=== PATIENT | male | born 1945 | race Caucasian/White ===

== ENCOUNTER → 2017-06-30 11:15 | Outpatient (CLI) | payer MEDICARE, OTHER, SELFPAY | PROVIDERS: Family Provider Family Medicine; PCP Family Medicine; Visit Provider Family Medicine | DX: N39.0 Urinary tract infection, site not specified (principal) | CPT/HCPCS: 87077; 87086; 87088; 87186 ==

== ENCOUNTER 2017-09-04 11:00 | Outpatient (RCR) | payer MEDICARE, OTHER, SELFPAY ==
--- NOTE | 2017-05-02 20:12 | HP.PTEVAL_ITS ---
Patient's Visit Information DIANNE HERNANDEZ is a 71 year old M referred to Physical Therapy by Adair RUBY with a diagnosis of R TKA. Date of Evaluation: 05/02/17 Physical Therapist: Claudio Beck - Visit Plan Frequency: 2-3x /Week Duration: 4-6 Weeks Plan: Start with ROM, quad/glute med activation; progress to functional strengthening as tolerated. Use of ice and vaso for edema as needed. Progress HEP as able. - Subjective Subjective: Pt. is here today for his initial evaluation with diagnosis fo Right TKA. DOS 04/16/17. He is a plesant 71 y.o. male who reports having good response from surgery. He did home health for ~10 days but only had and eval and 1 treatment. He ws given exercises in hospital which he reports completing frequently. He arrives today without AD and reports no pain. He does have mild medial joint pain with end ranges of motions and with stairs. He denies N/T and no falls sice surgery. He was previously very active and did a lot of strength training prior to surgery. Pt. denies fever or chills. No draining from incision and no calf pain. He is hopeful to get back to all recreational activities most notably tennis without limitations. - Pain R knee Pain Intensity (Out of 10): 1 Pain Intensity Range: 0, 4 - Objective POSTURE: Pt. stands without AD. He lacks terminal knee extension on R side, increased L ne varus positioning noted. Pt. has equal illiac crest heights. PALPATION: Pt. has healing incision, no seeping or draining. Pt. has slight edema, non pitting. Pt. has minimal redness and minimal heat. Pt. has negative homans sign. NEUROLOGICAL: Pt. has normal senstation to light and sharp touch throughout bilateral LEs. Pt. has 2+ achilles DTR bilaterally. Pt. is able to rise on heels and toes without issues of LOB or weakness. ROM: L knee 0-0- 136deg. R knee 0-8-112deg. Pt. has normal hip ROM, but does have a replaced L hip as well. Pt. has tight HS bilaterally. MMT: LLE- ankle 5/5 throughout; knee - ext 5/5, flexion 5/5; hip- flexion 5/5, abd 5-/5, ext 5-/5. RLE- ankle 5/5 throughout; knee- ext 4/5, flexion 4-/5; hip- flexion 4+/5 (slight quad lag with SLR), abd 4/5, ext 4/5. Core strength- fair-. GAIT: Pt. ambulates without AD. Pt. has reduced heel strike with initial contact on RLE, decreased TKE during stance phase on LLE, decreased knee flexion during swing phase. He has increased R lateral lean during R stance phase as well. STAIRS: Pt. able to complete with reciprocal pattern with 2 HR, mild increase NW with ascending compared to descending. - Goals Goal 1:: Pt. to be I with HEP. Goal Time Frame: 4-6 Weeks Goal 2:: Pt. to have increased ROM of R knee to 0-0-125 deg allowing for increased tolerance to all functional mobility. Goal Time Frame: 4-6 Weeks Goal 3:: Pt. to have increased RLE strength by 1/2 grade of all effected musculature allowing increased stability of R knee with all functional mobility. Goal Time Frame: 4-6 Weeks Goal 4:: Pt. to negotiate steps with reciprocal pattern with 1 HR without signs of functional weakness. Goal Time Frame: 4-6 Weeks Goal 5:: Pt. to have normal gait pattern for unlimited distances without AD without increase in symptoms. Goal Time Frame: 4-6 Weeks - Rehabilitation Potential Physical Therapy Diagnosis: Pt. has increased hypomobility, weakness, pain and gait difficulty S/P R TKA. Pt. would benefit from PT to increase ROM, increased RLE strength, decreased edema and improve stability with gait. Rehabilitation Potential: Excellent - Anticipated Interventions Patient/Client Instruction: Educate patient on: Condition, Plan of Care, Risk Factors, Benefits of Fitness Program For the Purpose of:: To reduce risk of recurrence, To improve safety, To improve health and function, To foster healthy habits, To improve decision making, To improve self management, To prevent re-injury, To improve ability to perform tasks related to life management, To improve tolerance to ADL's Therapeutic Exercise to Include: Strength training, Power training, Endurance training, Balance training, Body mechanics, Postural training, Flexibilty training, Gait and locomotor training, Passive ROM, Active ROM, Dynamic Lumbar Stabilization For the Purpose of:: To decrease pain, To increase ROM, To improve nutrient delivery to tissue, To increase oxygenation perfusion, To improve muscle performance and motor function, To improve ability to perform ADL's, To increase tolerance to activity/condition/position, To decrease level of supervision to perform tasks, To improve ability of physical actions for home/ community/work/leisure, To improve gait and locomotor functions, To improve health of tissue, To decrease soft tissue restriction, To increase flexibility/ ROM, To improve endurance, To improve balance Manual Therapy Techniques to Include: Massage, Mobilization, Passive ROM For the Purpose of:: To decrease pain, To decrease swelling/inflammation, To increase ROM, To improve nutrient delivery to tissue Cryotherapy (ice pack, ice massage): Yes Vasopneumatic device: Yes For the Purpose of:: To decrease pain, To decrease swelling/inflammation, To increase ROM Thank you for the opportunity to evaluate your patient. For Medicare and Medicare HMO plans, please review the plan of care and approve it. It will need to be FAXED BACK to us at [phone] for Medicare purposes. Please let me know if there are questions or concerns regarding this plan of care. Physician Signature: Date:
--- NOTE | 2017-05-28 08:38 | HP.PTREVAL_ITS ---
Adair Veliz, It has been my pleasure to treat DIANNE HERNANDEZ over the last 10 visits for R TKA. Please see the progress note below for an update on the physical therapy plan of care! Subjective: Pt. reports increased medial joint line soreness since last visit. Pt. reports coming into gym and trying some exercises yesterday. Pt. does not go back to phsician for another few weeks. Objective/Function: ROM 0-0-128deg active. MMT- ankle 5/5; knee- ext 5-5/, flexon 5-/5; hip- flexion 4+/5, abd 4+/5, ext 4+/5. Core fair+. Gait- patient ambulates well without AD, he has TKE during stance, but does have slight drop off (lateral lean) to R side during R stance phase. STAIRS:Pt. is able to complete with reciprocal pattern, but does have difficulty with controlled eccentric lowering, improved over last few visits. Talked with patient about not over doing with exercises that will increase his R medial knee pain. Pt. edcuated that his knee is still healing and there is a time frame that will not be shorted by increased wt. or reps. He is doing very well and he do not want to inflame his knee causing him to do less, pt. consents. Plan Plan: Cont. with current POC, pt. continues to progress as expected. Progress to gym exercises and walking program as tolerated. Goals Goal 1:: Pt. to be I with HEP. Goal Time Frame: 4-6 Weeks Goal Progress: Goal Met Goal 2:: Pt. to have increased ROM of R knee to 0-0-125 deg allowing for increased tolerance to all functional mobility. Goal Time Frame: 4-6 Weeks Goal Progress: Goal Met Goal 3:: Pt. to have increased RLE strength by 1/2 grade of all effected musculature allowing increased stability of R knee with all functional mobility. Goal Time Frame: 4-6 Weeks Goal Progress: Goal Met Goal 4:: Pt. to negotiate steps with reciprocal pattern with 1 HR without signs of functional weakness. Goal Time Frame: 4-6 Weeks Goal Progress: Progressing Goal 5:: Pt. to have normal gait pattern for unlimited distances without AD without increase in symptoms. Goal Time Frame: 4-6 Weeks Goal Progress: Progressing Anticipated Interventions Patient/Client Instruction: Educate patient on: Condition, Plan of Care, Risk Factors, Benefits of Fitness Program For the Purpose of:: To reduce risk of recurrence, To improve safety, To improve health and function, To foster healthy habits, To improve decision making, To improve self management, To prevent re-injury, To improve ability to perform tasks related to life management, To improve tolerance to ADL's Therapeutic Exercise to Include: Strength training, Power training, Endurance training, Balance training, Body mechanics, Postural training, Flexibilty training, Gait and locomotor training, Passive ROM, Active ROM, Dynamic Lumbar Stabilization For the Purpose of:: To decrease pain, To increase ROM, To improve nutrient delivery to tissue, To increase oxygenation perfusion, To improve muscle performance and motor function, To improve ability to perform ADL's, To increase tolerance to activity/condition/position, To decrease level of supervision to perform tasks, To improve ability of physical actions for home/ community/work/leisure, To improve gait and locomotor functions, To improve health of tissue, To decrease soft tissue restriction, To increase flexibility/ ROM, To improve endurance, To improve balance Manual Therapy Techniques to Include: Massage, Mobilization, Passive ROM For the Purpose of:: To decrease pain, To decrease swelling/inflammation, To increase ROM, To improve nutrient delivery to tissue Cryotherapy (ice pack, ice massage): Yes Vasopneumatic device: Yes For the Purpose of:: To decrease pain, To decrease swelling/inflammation, To increase ROM Please do not hesitate to contact me at [phone] by phone or Fax: if you have questions or concerns regarding this new plan of care! Sincerely, Claudio Beck
--- NOTE | 2017-06-03 20:20 | HP.PTREVAL_ITS ---
Adair Veliz, It has been my pleasure to treat DIANNE HERNANDEZ over the last 12 visits for R TKA. Please see the progress note below for an update on the physical therapy plan of care! Subjective: Pt. reports no issues pre treatment. Pt. completed bike and nustep prior to PT this date. Objective/Function: MMT- 5/5 throughout no issues RLE. ROM- 0-0-129deg mild increase NW with over pressures, but minimal. gait: pt. ambulates with normal pattern without issues no AD. STAIRS: no functional weakness noted, reciprocal pattern without HR., No pain. Pt. is independent with current HEP. Plan Plan: Pt. has met all goals as this point in time. Pt. to trial exercises on own and call PT if needed. I will leave case open for 2-3 weeks, DC if pt. has no concerns. Goals Goal 1:: Pt. to be I with HEP. Goal Time Frame: 4-6 Weeks Goal Progress: Goal Met Goal 2:: Pt. to have increased ROM of R knee to 0-0-125 deg allowing for increased tolerance to all functional mobility. Goal Time Frame: 4-6 Weeks Goal Progress: Goal Met Goal 3:: Pt. to have increased RLE strength by 1/2 grade of all effected musculature allowing increased stability of R knee with all functional mobility. Goal Time Frame: 4-6 Weeks Goal Progress: Goal Met Goal 4:: Pt. to negotiate steps with reciprocal pattern with 1 HR without signs of functional weakness. Goal Time Frame: 4-6 Weeks Goal Progress: Goal Met Goal 5:: Pt. to have normal gait pattern for unlimited distances without AD without increase in symptoms. Goal Time Frame: 4-6 Weeks Goal Progress: Goal Met Anticipated Interventions Patient/Client Instruction: Educate patient on: Condition, Plan of Care, Risk Factors, Benefits of Fitness Program For the Purpose of:: To reduce risk of recurrence, To improve safety, To improve health and function, To foster healthy habits, To improve decision making, To improve self management, To prevent re-injury, To improve ability to perform tasks related to life management, To improve tolerance to ADL's Therapeutic Exercise to Include: Strength training, Power training, Endurance training, Balance training, Body mechanics, Postural training, Flexibilty training, Gait and locomotor training, Passive ROM, Active ROM, Dynamic Lumbar Stabilization For the Purpose of:: To decrease pain, To increase ROM, To improve nutrient delivery to tissue, To increase oxygenation perfusion, To improve muscle performance and motor function, To improve ability to perform ADL's, To increase tolerance to activity/condition/position, To decrease level of supervision to perform tasks, To improve ability of physical actions for home/ community/work/leisure, To improve gait and locomotor functions, To improve health of tissue, To decrease soft tissue restriction, To increase flexibility/ ROM, To improve endurance, To improve balance Manual Therapy Techniques to Include: Massage, Mobilization, Passive ROM For the Purpose of:: To decrease pain, To decrease swelling/inflammation, To increase ROM, To improve nutrient delivery to tissue Cryotherapy (ice pack, ice massage): Yes Vasopneumatic device: Yes For the Purpose of:: To decrease pain, To decrease swelling/inflammation, To increase ROM Please do not hesitate to contact me at [phone] by phone or Fax: if you have questions or concerns regarding this new plan of care! Sincerely, Claudio Beck
--- NOTE | 2017-08-06 12:38 | HP.PTDCNRP_ITS ---
HP - Discharge Summary (1) - Patient Information DIANNE HERNANDEZ was seen in my office for initial evaluation on 05/02/17. The following Plan of Care was established for this patient: Initial Frequency: 2-3x /Week Initial Duration: 4-6 Weeks - Anticipated Interventions Patient/Client Instruction: Educate patient on: Condition, Plan of Care, Risk Factors, Benefits of Fitness Program For the Purpose of:: To reduce risk of recurrence, To improve safety, To improve health and function, To foster healthy habits, To improve decision making, To improve self management, To prevent re-injury, To improve ability to perform tasks related to life management, To improve tolerance to ADL's Therapeutic Exercise to Include: Strength training, Power training, Endurance training, Balance training, Body mechanics, Postural training, Flexibilty training, Gait and locomotor training, Passive ROM, Active ROM, Dynamic Lumbar Stabilization For the Purpose of:: To decrease pain, To increase ROM, To improve nutrient delivery to tissue, To increase oxygenation perfusion, To improve muscle performance and motor function, To improve ability to perform ADL's, To increase tolerance to activity/condition/position, To decrease level of supervision to perform tasks, To improve ability of physical actions for home/ community/work/leisure, To improve gait and locomotor functions, To improve health of tissue, To decrease soft tissue restriction, To increase flexibility/ ROM, To improve endurance, To improve balance Manual Therapy Techniques to Include: Massage, Mobilization, Passive ROM For the Purpose of:: To decrease pain, To decrease swelling/inflammation, To increase ROM, To improve nutrient delivery to tissue Cryotherapy (ice pack, ice massage): Yes Vasopneumatic device: Yes For the Purpose of:: To decrease pain, To decrease swelling/inflammation, To increase ROM This patient was last seen in our office 06/01/17. Pertinent comments regarding their Physical therapy will appear below: Pt. did very well with his rehab following his TKA. Pt. progressed as expected. Pt. was to trial PT on own for 2-3 week and follow up if needed. Pt has not been seen in PT since and will be DC from PT at this point. At this point I will be discontinuing this patient from physical therapy. I would be happy to see this patient again in the future if found appropriate by the physician. Thank you! Claudio Beck
--- NOTE | 2017-08-15 12:44 | HP.PTREVAL_ITS ---
Adair Veliz, It has been my pleasure to treat DIANNE HERNANDEZ over the last 1 visits for B pes planus. Please see the progress note below for an update on the physical therapy plan of care! Subjective: Pt. reports no issues pre treatment. Pt. completed bike and nustep prior to PT this date. Objective/Function: MMT- 5/5 throughout no issues RLE. ROM- 0-0-129deg mild increase NW with over pressures, but minimal. gait: pt. ambulates with normal pattern without issues no AD. STAIRS: no functional weakness noted, reciprocal pattern without HR., No pain. Pt. is independent with current HEP. Plan Plan: Pt. to be fit with orthotics and educated in wearing progression. Pt. was accidently discharged, then brought in new script for B orthotics with pes planus. Goals Goal 1:: Pt. to be fit with orthotics. Goal Time Frame: 1 Week Goal Progress: Goal Met Goal 2:: Pt. to have good tolerated orthotics fit. Goal Time Frame: 2 Weeks Goal Progress: Goal Met Goal Time Frame: 4-6 Weeks Goal Progress: Goal Met Goal Time Frame: 4-6 Weeks Goal Progress: Goal Met Goal Time Frame: 4-6 Weeks Goal Progress: Goal Met Anticipated Interventions Patient/Client Instruction: Educate patient on: Condition, Plan of Care, Risk Factors, Benefits of Fitness Program For the Purpose of:: To foster healthy habits, To improve decision making, To facilitate caregiver knowledge, To improve self management, To prevent re-injury , To improve ability to perform tasks related to life management, To improve tolerance to ADL's Therapeutic Exercise to Include: Strength training, Power training, Endurance training, Balance training, Body mechanics, Postural training, Flexibilty training, Gait and locomotor training, Passive ROM, Active ROM, Dynamic Lumbar Stabilization For the Purpose of:: To decrease pain, To increase ROM, To improve nutrient delivery to tissue, To increase oxygenation perfusion, To improve muscle performance and motor function, To improve ability to perform ADL's, To increase tolerance to activity/condition/position, To decrease level of supervision to perform tasks, To improve ability of physical actions for home/ community/work/leisure, To improve gait and locomotor functions, To improve health of tissue, To decrease soft tissue restriction, To increase flexibility/ ROM, To improve endurance, To improve balance Manual Therapy Techniques to Include: Massage, Mobilization, Passive ROM For the Purpose of:: To decrease pain, To decrease swelling/inflammation, To increase ROM, To improve nutrient delivery to tissue Orthotics: Shoe insert For the Purpose of:: To decrease pain, To increase ROM, To improve gait and locomotor functions, To improve health of tissue Cryotherapy (ice pack, ice massage): Yes Vasopneumatic device: Yes For the Purpose of:: To decrease pain, To decrease swelling/inflammation, To increase ROM Please do not hesitate to contact me at [phone] by phone or Fax: if you have questions or concerns regarding this new plan of care! Sincerely, Claudio Beck
--- NOTE | 2017-09-24 08:56 | HP.PTDCSUM ---
HP - PT D/C Summary It has been my pleasure to treat DIANNE HERNANDEZ under orders from Adair Veliz, for the diagnosis of B pes planus for a total of 2 visit(s). Discharge Date: 09/04/17 Please see the following information for a summary of their discharge status. - Subjective Subjective: Pt. is here to get his new orthotics. Pt. reports no issues currently. - Pain R knee Pain Intensity (Out of 10): 0 - Overall Improvement % Improvement: 95 - Objective Objective/Function: Pt. fit for new othotics, sized to fit. Pt. ambulated. No rubbing or issues noted. Pt. pleased. Pt. instructed in proper wearing progressiong. - Goals Goal 1:: Pt. to be fit with orthotics. Goal Progress: Goal Met Goal 2:: Pt. to have good tolerated orthotics fit. Goal Progress: Goal Met Goal 3:: Pt. to have increased RLE strength by 1/2 grade of all effected musculature allowing increased stability of R knee with all functional mobility. Goal Progress: Goal Met Goal 4:: Pt. to negotiate steps with reciprocal pattern with 1 HR without signs of functional weakness. Goal Progress: Goal Met Goal 5:: Pt. to have normal gait pattern for unlimited distances without AD without increase in symptoms. Goal Progress: Goal Met - Plan Plan: Pt. will be DC from PT at this point in time. - D/C Information Discharge Comments: Pt. was fit for new orthotic with good fit. Pt. reports no pain with walking or irritation. Pt. educated in proper wearing progression. Pt. to follow up with PT if needed. Pt. will be DC from PT this date. If there are questions or concerns regarding this patient's physical therapy, please feel free to call me at [phone]. Thank you for the referral of this patient. Sincerely, Claudio Beck
== END 2017-09-04 19:00 | disposition home or self-care (01) ==
LOC: PT 11:00
PROVIDERS: Family Provider Family Medicine; PCP Family Medicine; Visit Provider Orthopaedic Surgery
DX: M17.11 Unilateral primary osteoarthritis, right knee (principal)
CPT/HCPCS: 97016; 97110; 97161; 97164; 97530; 97763

== ENCOUNTER → 2017-10-22 11:22 | Outpatient (CLI) | payer MEDICARE, OTHER, SELFPAY ==
[2017-10-22 12:45] LABS: Anion Gap 7 (5-15); BUN 15 mg/dL (7-18); BUN/Creat Ratio 14.7 RATIO (10-20); Calcium,Total 9.1 mg/dL (8.5-10.1); Chloride 104 mmol/L (98-107); Cholesterol 167 mg/dL (200); Creatinine, Serum 1.02 mg/dL (0.70-1.30); EST Glomerular Filtration Rate 77 mL/min (>60); Est Glom Filt Rate - Afr Amer 93 mL/min (>60); Glucose 101 mg/dL (74-106); High Density Lipoprotein 59 mg/dL; PSA,Total- Diagnostic 4.58 ng/mL (0.0-4.0); Potassium 3.5 mmol/L (3.5-5.1); Sodium Level 141 mmol/L (136-145); Triglycerides 119 mg/dL; Very Low Density Lipoprotein 24 mg/dL (5-40)
== END ==
PROVIDERS: Family Provider Family Medicine; PCP Family Medicine; Visit Provider Family Medicine
DX: I10 Essential (primary) hypertension (principal); R97.20 Elevated prostate specific antigen [PSA]
CPT/HCPCS: 36415; 80048; 80061; 84153

== ENCOUNTER → 2018-04-23 09:21 | Outpatient (CLI) | payer MEDICARE, OTHER, SELFPAY ==
--- NOTE | 2018-04-23 09:25 | RAD_ITS ---
STUDY: X-RAY - LUMBAR SPINE REASON FOR EXAM: Male, 72 years old. Back pain. TECHNIQUE: 5 view(s) of the lumbar spine were obtained. COMPARISON: None FINDINGS: Normal lumbar lordosis. There is no substantial scoliosis. There is a normal alignment of the vertebrae. Anterior and lateral marginal spurs in the lumbar spine. No acute fractures. Bridging of osteophytes anterior lateral ligament in the included thoracic spine suggesting diffuse idiopathic skeletal hyperostosis. Moderate disc space narrowing at L4-L5 and L5-S1 disc space levels. Mild L3-L4 disc space height narrowing. No significant facet arthropathy. No acute fractures. The soft tissue structures are unremarkable. RAD/L/S Spine Min 4 Views IMPRESSION: 1. No acute fracture or acute osseous abnormality of the lumbar spine. 2. Degenerative disc space narrowing at L3-L4 down to L5-S1 disc space levels. Electronically Signed: Elio Arriola MD at 9:18 EST , Service support ,
[2018-04-23 12:50] LABS: Anion Gap 8 (5-15); BUN 21 mg/dL (7-18); BUN/Creat Ratio 19.4 RATIO (10-20); Calcium,Total 8.7 mg/dL (8.5-10.1); Chloride 102 mmol/L (98-107); Cholesterol 160 mg/dL (200); Creatinine, Serum 1.08 mg/dL (0.70-1.30); EST Glomerular Filtration Rate 72 mL/min (>60); Est Glom Filt Rate - Afr Amer 87 mL/min (>60); Glucose 97 mg/dL (74-106); High Density Lipoprotein 54 mg/dL; Potassium 3.2 mmol/L (3.5-5.1); Sodium Level 139 mmol/L (136-145); Triglycerides 118 mg/dL; Very Low Density Lipoprotein 24 mg/dL (5-40)
== END ==
PROVIDERS: Family Provider Family Medicine; PCP Family Medicine; Referring Provider Family Medicine; Visit Provider Family Medicine
DX: M54.5 Low back pain (principal); I10 Essential (primary) hypertension
CPT/HCPCS: 36415; 72110; 80048; 80061

== ENCOUNTER 2018-05-21 10:00 | Outpatient (RCR) | payer MEDICARE, OTHER, SELFPAY ==
--- NOTE | 2018-04-29 08:33 | HP.PTEVAL ---
Patient's Visit Information DIANNE HERNANDEZ is a 72 year old M referred to Physical Therapy by Adair Veliz with a diagnosis of R patellar tendonitis, L hip bursitis. Date of Evaluation: 04/19/18 Physical Therapist: Claudio Beck DPT - Visit Plan Frequency: 2x /Week Duration: 4 Weeks Plan: Start with ionto on R patellar tendon, L greater trochanter. R quad stretching, eccentric strengthening. L hip pirfirmis stretching (with out breaking hip procautions, manual to L hip, glute med stretngthening. - Subjective Findings: Pt. is here today for his initial evaluation with diagnosis of L hip bursitis and R knee patellar tendonitis. Pt. 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 Pt. reports having increased L hip pain with walking walking, standing and exercises. Pt. has increased R knee pain with exercise, walking, stairs, and with biking. Pt. denies N/T in either LE. 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 Pt. reports no pain at night. Pt. reports being hopeful to reduce symptoms in order to get back to playing tennis without restrictions. - Pain R patellar tendon Pain Intensity (Out of 10): 2 Pain Intensity Range: 0, 4 L lateral hip Pain Intensity (Out of 10): 1 Pain Intensity Range: 4 - Objective POSTURE: Pt. has slight anterior pelvic tilt. Pt. has slight lack of TKE on R knee. Pt. has normal iliac crest positioning. PALPATION: PT. has increased pain with R patellar tendon, no joint line pain. Pt. has pain at L greater trochanter and L piriformis muscle. NEURO: Pt. reports light tingling in R quad (medial), but no other sensation changes. Pt. has normal DTR of bilateral achilles tendons. Pt. is able to rise on heels and toes without increase in symptoms. ROM: R knee 0-2-125deg. L hip- flexion 110deg, abd 45deg, IR 20deg (did not force SOCO), ext 15deg, ER 60deg (did not force due to SOCO). MMT: RLE- ankle 5/5 throughout; knee- ext 5-/5 mild increase in symptoms, flexion 5-/5; hip 5/5 throughout. LLE- ankle/knee 5/5 throughout; hip- flexion 4/5, abd 4/5, ext 4/5. GAIT: Pt. has anterior tilt of his pelvis. Pt. has slight R hip drop during L stance phase phase. Pt. ambulates with slight lack of R TKE during stance phase. STAIRS: Pt. has normal pattern, but does present with fucntional glute med and quad weakness with acending/descending steps. - Goals Goal 1:: Pt. to be I with HEP. Goal Time Frame: 4-6 Weeks Goal 2:: Pt. to ambulate unlimted distances without incerase in R knee or L hip pain. Goal Time Frame: 4-6 Weeks Goal 3:: Pt. to negotiate steps with reciprocal pattern without increase in symptoms. Goal Time Frame: 4-6 Weeks Goal 4:: Pt. to have incerased BLE strength by 1/2 grade of all effected musculature to reduce stress on R knee and L hip with all functional mobility. Goal Time Frame: 4-6 Weeks Goal 5:: Pt. to resume all recreational activities without incerase in symptoms. Goal Time Frame: 4-6 Weeks - Rehabilitation Potential Physical Therapy Diagnosis: Pt. has signs and symptoms consistent with R patellar tendonitis, L hip bursitis. Pt. has tightness with L hip IR, tight HS bilaterally, R quad tightness, L glute med weakness and R quad weakness. Pt. would benefit from PT to reduce symptoms, then progress strengthening exercises to maintain reduction. Rehabilitation Potential: Excellent - Anticipated Interventions Patient/Client Instruction: Educate patient on: Condition, Plan of Care, Risk Factors, Benefits of Fitness Program For the Purpose of:: To facilitate caregiver knowledge, To improve self management, To prevent re-injury, To improve ability to perform tasks related to life management, To improve tolerance to ADL's Therapeutic Exercise to Include: Strength training, Power training, Endurance training, Balance training, Postural training, Flexibilty training, Passive ROM, Active ROM, Dynamic Lumbar Stabilization For the Purpose of:: To decrease pain, To decrease swelling/inflammation, To increase ROM, To improve health of tissue, To decrease soft tissue restriction, To increase flexibility/ROM, To improve endurance Manual Therapy Techniques to Include: Passive ROM, Soft tissue mobilization For the Purpose of:: To decrease pain, To decrease swelling/inflammation, To increase ROM, To improve nutrient delivery to tissue, To improve health of tissue, To decrease soft tissue restriction, To increase flexibility/ROM Iontophoresis (with Dexamethozone, with Acetic acid): Yes For the Purpose of:: To decrease pain, To decrease swelling/inflammation Thank you for the opportunity to evaluate your patient. For Medicare and Medicare HMO plans, please review the plan of care and approve it. It will need to be FAXED BACK to us at [phone] for Medicare purposes. For Medicare only, by signing this I certify the plan of care. Please let me know if there are questions or concerns regarding this plan of care. Physician Signature: Date:
--- NOTE | 2018-07-09 13:20 | HP.PT.NRP ---
HP - Discharge Summary (1) - Patient Information DIANNE HERNANDEZ was seen in my office for initial evaluation on 04/19/18. The following Plan of Care was established for this patient: Initial Frequency: 2x /Week Initial Duration: 4 Weeks - Anticipated Interventions Patient/Client Instruction: Educate patient on: Condition, Plan of Care, Risk Factors, Benefits of Fitness Program For the Purpose of:: To facilitate caregiver knowledge, To improve self management, To prevent re-injury, To improve ability to perform tasks related to life management, To improve tolerance to ADL's Therapeutic Exercise to Include: Strength training, Power training, Endurance training, Balance training, Postural training, Flexibilty training, Passive ROM, Active ROM, Dynamic Lumbar Stabilization For the Purpose of:: To decrease pain, To decrease swelling/inflammation, To increase ROM, To improve health of tissue, To decrease soft tissue restriction, To increase flexibility/ROM, To improve endurance Manual Therapy Techniques to Include: Passive ROM, Soft tissue mobilization For the Purpose of:: To decrease pain, To decrease swelling/inflammation, To increase ROM, To improve nutrient delivery to tissue, To improve health of tissue, To decrease soft tissue restriction, To increase flexibility/ROM Iontophoresis (with Dexamethozone, with Acetic acid): Yes For the Purpose of:: To decrease pain, To decrease swelling/inflammation This patient was last seen in our office 05/21/18. Pertinent comments regarding their Physical therapy will appear below: Pt. was treated for his hip bursitis and patellar tendonitis. Pt. was treated with strengthening, stretching and iontophoresis. Pt. made good gains, but did still have some symptoms. Pt. was to trial exercises on his own and follow up with PT in 2 weeks, but has not been seeni n ~6 weeks and will be DC from Pt at this point in time. At this point I will be discontinuing this patient from physical therapy. I would be happy to see this patient again in the future if found appropriate by the physician. Thank you! MARIBELL SolisT
== END 2018-05-21 19:00 | disposition home or self-care (01) ==
LOC: PT 10:00
PROVIDERS: Family Provider Family Medicine; PCP Family Medicine; Referring Provider Orthopaedic Surgery; Visit Provider Orthopaedic Surgery
DX: M51.36 Other intervertebral disc degeneration, lumbar region (principal); M70.62 Trochanteric bursitis, left hip; M76.51 Patellar tendinitis, right knee; Z96.642 Presence of left artificial hip joint; Z96.651 Presence of right artificial knee joint
CPT/HCPCS: 97110; 97162

== ENCOUNTER → 2018-10-22 08:00 | Outpatient (CLI) | payer MEDICARE, OTHER, SELFPAY ==
[2018-10-22 10:34] LABS: Anion Gap 4 (5-15); BUN 23 mg/dL (7-18); BUN/Creat Ratio 18.7 RATIO (10-20); Calcium,Total 8.8 mg/dL (8.5-10.1); Chloride 105 mmol/L (98-107); Cholesterol 163 mg/dL (200); Creatinine, Serum 1.23 mg/dL (0.70-1.30); EST Glomerular Filtration Rate 62 mL/min (>60); Est Glom Filt Rate - Afr Amer 74 mL/min (>60); Glucose 101 mg/dL (74-106); High Density Lipoprotein 49 mg/dL; Potassium 3.6 mmol/L (3.5-5.1); Sodium Level 138 mmol/L (136-145); Triglycerides 98 mg/dL; Very Low Density Lipoprotein 20 mg/dL (5-40)
== END ==
PROVIDERS: Family Provider Family Medicine; PCP Family Medicine; Referring Provider Family Medicine; Visit Provider Family Medicine
DX: I10 Essential (primary) hypertension (principal)
CPT/HCPCS: 36415; 80048; 80061

== ENCOUNTER → 2019-04-21 09:39 | Outpatient (CLI) | payer MEDICARE, OTHER, SELFPAY ==
[2019-04-21 13:38] LABS: Anion Gap 3 (5-15); BUN 20 mg/dL (7-18); BUN/Creat Ratio 17.9 RATIO (10-20); Calcium,Total 9.1 mg/dL (8.5-10.1); Chloride 106 mmol/L (98-107); Creatinine, Serum 1.12 mg/dL (0.70-1.30); EST Glomerular Filtration Rate 68 mL/min (>60); Est Glom Filt Rate - Afr Amer 83 mL/min (>60); Glucose 113 mg/dL (74-106); PSA,Total - Annual Screen 2.48 ng/mL (0.00-4.00); Potassium 3.7 mmol/L (3.5-5.1); Sodium Level 139 mmol/L (136-145)
== END ==
PROVIDERS: Family Provider Family Medicine; PCP Family Medicine; Referring Provider Family Medicine; Visit Provider Family Medicine
DX: I10 Essential (primary) hypertension (principal); Z12.5 Encounter for screening for malignant neoplasm of prostate
CPT/HCPCS: 36415; 80048; 84153; G0103

== ENCOUNTER → 2019-10-16 08:22 | Outpatient (CLI) | payer MEDICARE, OTHER, SELFPAY ==
[2019-10-16 10:19] LABS: Anion Gap 7 (5-15); BUN 20 mg/dL (7-18); BUN/Creat Ratio 20.2 RATIO (10-20); Calcium,Total 8.7 mg/dL (8.5-10.1); Chloride 101 mmol/L (98-107); Cholesterol 171 mg/dL (200); Creatinine, Serum 0.99 mg/dL (0.70-1.30); EST Glomerular Filtration Rate 79 mL/min (>60); Est Glom Filt Rate - Afr Amer 95 mL/min (>60); Glucose 108 mg/dL (74-106); High Density Lipoprotein 49 mg/dL; Potassium 3.2 mmol/L (3.5-5.1); Sodium Level 138 mmol/L (136-145); Triglycerides 101 mg/dL; Very Low Density Lipoprotein 20 mg/dL (5-40)
== END ==
PROVIDERS: PCP Family Medicine; Referring Provider Family Medicine; Visit Provider Family Medicine
DX: I10 Essential (primary) hypertension (principal)
CPT/HCPCS: 36415; 80048; 80061

== ENCOUNTER → 2019-11-19 07:44 | Outpatient (CLI) | payer MEDICARE, OTHER, SELFPAY ==
[2019-11-19 10:39] LABS: Anion Gap 7 (5-15); BUN 18 mg/dL (7-18); BUN/Creat Ratio 17.3 RATIO (10-20); Calcium,Total 8.8 mg/dL (8.5-10.1); Chloride 103 mmol/L (98-107); Creatinine, Serum 1.04 mg/dL (0.70-1.30); EST Glomerular Filtration Rate 74 mL/min (>60); Est Glom Filt Rate - Afr Amer 90 mL/min (>60); Glucose 108 mg/dL (74-106); Potassium 3.6 mmol/L (3.5-5.1); Sodium Level 140 mmol/L (136-145)
== END ==
PROVIDERS: PCP Family Medicine; Referring Provider Family Medicine; Visit Provider Family Medicine
DX: E87.6 Hypokalemia (principal)
CPT/HCPCS: 36415; 80048

== ENCOUNTER 2019-11-24 10:30 | Outpatient (RCR) | payer MEDICARE, OTHER, SELFPAY ==
--- NOTE | 2019-11-18 09:37 | HP.PTEVAL_ITS ---
Patient's Visit Information DIANNE HERNANDEZ is a 74 year old M referred to Physical Therapy by Dr. Virgilio Steinberg MD with a diagnosis of lumbar dysfunction. Date of Evaluation: 10/20/19 Physical Therapist: Claudio Beck DPT - Visit Plan Frequency: 2x /Week Duration: 4 Weeks Plan: Start with extension progression. progress to core stability exercises. - Subjective Pt. is her today for his initial evaluation with diagnosis of lumbar di sfunction. Pt. reports having some back pain previously, but not like this. 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 Pt. reports pain at R side of lumbar spine, SI region. Pt. reports pain is pretty constant,but has intetmittent increase in symptoms which does not appear to have a pattern. Pt. did have an xray a few years ago showing DDD of L4-S1. Pt. is having some R knee pain, but believes this might be due to previous R TKA. pt. is still active, but not as much as he had been previously due to covid pandemic. pt. is hopeful to reduce symptoms in order to get back to all recreational and work activities without limitations. - Pain Lumbar spine R side Pain Intensity (Out of 10): 0 Pain Intensity Range: 0, 4 - Objective POSTURE: Sway back posture. Pt. is able to improve with VCing. Normal iliac crest heights. PALPATION: Pt. has increased tenderness at L4-L5 on R side and R side of SI joint. NEURO: normal sensation and DTR bilaterally. ROM: lumbar spine: flexion min loss increase NW, extension- mod loss increase NW, SB mod loss bilat NE, rotation min loss BE. Pt. has tight HS bilaterally and tight hip flexors bilaterally. MMT: Pt. has 5/5 strength of BLEs, except 4/5 core strength. GAIT: Pt. is able to ambulate without limiations. - Goals Goal 1:: LTG: Pt. to be I with HEP. Goal Time Frame: 4-6 Weeks Goal 2:: STG: Pt. to have reduced knee and low back pain with all daily activities. Goal Time Frame: 2-4 Weeks Goal 3:: LTG: Pt to have increased lumbar ROM into extension by 25%. Goal Time Frame: 4-6 Weeks Goal 4:: LTG: Pt. to resume all recreational activities without increase in symptoms. Goal Time Frame: 4-6 Weeks Goal 5:: LTG: Pt. to have increased core strength by 1/2 grade. Goal Time Frame: 4-6 Weeks - Rehabilitation Potential Physical Therapy Diagnosis: Pt. presents with lumbar dysfunction with hypomobility noted. Pt. reports some relief with extension progression this date. Pt. reports no tingling in his knee post extension progression. Pt. would benefit form P to work on core stability and extension progression. Rehabilitation Potential: Excellent - Anticipated Interventions Patient/Client Instruction: Educate patient on: Condition, Plan of Care, Risk Factors, Benefits of Fitness Program For the Purpose of:: To facilitate caregiver knowledge, To improve self management, To prevent re-injury, To improve ability to perform tasks related to life management, To improve tolerance to ADL's Therapeutic Exercise to Include: Strength training, Power training, Body mechanics, Postural training, Flexibilty training, Passive ROM, Active ROM, Dynamic Lumbar Stabilization, Manoj Exercises For the Purpose of:: To decrease pain, To decrease swelling/inflammation, To increase ROM, To improve nutrient delivery to tissue, To increase oxygenation perfusion, To improve muscle performance and motor function, To improve ability to perform ADL's, To increase tolerance to activity/condition/position, To improve performance and independence with ADL's, To improve health of tissue, To decrease soft tissue restriction, To increase flexibility/ROM Manual Therapy Techniques to Include: Mobilization, Functional dry needling, Soft tissue mobilization For the Purpose of:: To decrease pain, To decrease swelling/inflammation, To increase ROM, To improve nutrient delivery to tissue, To increase oxygenation perfusion, To improve muscle performance and motor function, To improve ability to perform ADL's Cryotherapy (ice pack, ice massage): Yes Thermo therapy (hot pack): Yes For the Purpose of:: To decrease pain, To decrease swelling/inflammation, To increase ROM Thank you for the opportunity to evaluate your patient. For Medicare and Medicare HMO plans, please review the plan of care and approve it. It will need to be FAXED BACK to us at [phone] for Medicare purposes. For Medicare only, by signing this I certify the plan of care. Please let me know if there are questions or concerns regarding this plan of care. Physician Signature: Date:
--- NOTE | 2019-11-18 09:37 | HP.PTREVAL ---
Dr. Virgilio Steinberg MD, It has been my pleasure to treat DIANNE HERNANDEZ over the last 5 visits for lumbar dysfunction. Please see the progress note below for an update on the physical therapy plan of care! Subjective: Pt. reports overall I am doing pretty well., I took some ibuprophen the other day and my pain has been good since.' Pt. reports back to playing golf and tennis over the week without issue. He reports having some issues earlier last week, but not any more. Objective/Function: Pt. contiunes to progress with strengthening. He was having some soreness with what he balieved to be the extension exercises. I instructed him to avoid this and focus on above stabilization exercises. Pt. consents. Pt. is overall improving. He has decreased intensity, increased core strength to fair. Pt. is progressing well. Pt. to follow up next week to make sure that his exercises are not causing the similar tingling. Pt. consents. Plan Plan: Start with extension progression. progress to core stability exercises. Goals Goal 1:: LTG: Pt. to be I with HEP. Goal Time Frame: 4-6 Weeks Goal 2:: STG: Pt. to have reduced knee and low back pain with all daily activities. Goal Time Frame: 2-4 Weeks Goal 3:: LTG: Pt to have increased lumbar ROM into extension by 25%. Goal Time Frame: 4-6 Weeks Goal 4:: LTG: Pt. to resume all recreational activities without increase in symptoms. Goal Time Frame: 4-6 Weeks Goal 5:: LTG: Pt. to have increased core strength by 1/2 grade. Goal Time Frame: 4-6 Weeks Anticipated Interventions Patient/Client Instruction: Educate patient on: Condition, Plan of Care, Risk Factors, Benefits of Fitness Program For the Purpose of:: To facilitate caregiver knowledge, To improve self management, To prevent re-injury, To improve ability to perform tasks related to life management, To improve tolerance to ADL's Therapeutic Exercise to Include: Strength training, Power training, Body mechanics, Postural training, Flexibilty training, Passive ROM, Active ROM, Dynamic Lumbar Stabilization, Manoj Exercises For the Purpose of:: To decrease pain, To decrease swelling/inflammation, To increase ROM, To improve nutrient delivery to tissue, To increase oxygenation perfusion, To improve muscle performance and motor function, To improve ability to perform ADL's, To increase tolerance to activity/condition/position, To improve performance and independence with ADL's, To improve health of tissue, To decrease soft tissue restriction, To increase flexibility/ROM Manual Therapy Techniques to Include: Mobilization, Functional dry needling, Soft tissue mobilization For the Purpose of:: To decrease pain, To decrease swelling/inflammation, To increase ROM, To improve nutrient delivery to tissue, To increase oxygenation perfusion, To improve muscle performance and motor function, To improve ability to perform ADL's Cryotherapy (ice pack, ice massage): Yes Thermo therapy (hot pack): Yes For the Purpose of:: To decrease pain, To decrease swelling/inflammation, To increase ROM Please do not hesitate to contact me at [phone] by phone or if you have questions or concerns regarding this new plan of care! Sincerely, MARIBELL SolisT
--- NOTE | 2019-11-24 11:54 | HP.PTDCSUM ---
It has been my pleasure to treat DIANNE HERNANDEZ referred by Dr. Virgilio Steinberg MD, with the diagnosis of lumbar dysfunction for a total of 6 visit(s). Discharge Date: 11/24/19 Please see the following information for a summary of their discharge status. Subjective: Pt. reports overall doing well. Pt. reports decreased symptoms with exercises, but is having some L sided flank pain. Pt. reports having some blood work done and no kidney injury noted. Pt. reporta HEP tends to help his symptoms, but is lateral flank pain is bothering him. 80% better overall. Lumbar spine R side Pain Intensity (Out of 10): 1 % Improvement: 80 Objective/Function: PT. reports overall doing well, he does have some pain in the L side of his flank, but improvved with extension exercises this date. Pt. had good ROM and is progressing with his strengthe (5-/5 throughout core), Good ROM(min/nil loss in all directions). Pt. is doing well with his HEP. Goal 1:: LTG: Pt. to be I with HEP. Goal Progress: Goal Met Goal 2:: STG: Pt. to have reduced knee and low back pain with all daily activities. Goal Progress: Goal Met Goal 3:: LTG: Pt to have increased lumbar ROM into extension by 25%. Goal Progress: Goal Met Goal 4:: LTG: Pt. to resume all recreational activities without increase in symptoms. Goal Progress: Goal Met Goal 5:: LTG: Pt. to have increased core strength by 1/2 grade. Goal Progress: Goal Met Plan: Pt. will be DC to HEP this date. Pt. is independent with his HEP. Discharge Comments: Pt. did well with PT. Treatment focused on core stability and extension strengthening. Pt. as able to reduce most symptoms and abolish at times with PT. Pt. is independent in his program. Pt. will be DC from PT this date. If there are questions or concerns regarding this patient's physical therapy, please feel free to call me at [phone]. Thank you for the referral of this patient. Sincerely, Claudio Beck DPT
== END 2019-11-24 12:38 | disposition home or self-care (01) ==
LOC: PT 10:30
PROVIDERS: PCP Family Medicine; Referring Provider Family Medicine; Visit Provider Family Medicine
DX: M53.86 Other specified dorsopathies, lumbar region (principal)
CPT/HCPCS: 97110; 97161

== ENCOUNTER → 2020-04-14 10:03 | Outpatient (CLI) | payer MEDICARE, OTHER, SELFPAY ==
[2020-04-14 12:59] LABS: Anion Gap 5 (5-15); BUN 18 mg/dL (7-18); BUN/Creat Ratio 17.3 RATIO (10-20); Calcium,Total 8.9 mg/dL (8.5-10.1); Chloride 107 mmol/L (98-107); Cholesterol 173 mg/dL (200); Creatinine, Serum 1.04 mg/dL (0.70-1.30); EST Glomerular Filtration Rate 74 mL/min (>60); Est Glom Filt Rate - Afr Amer 90 mL/min (>60); Glucose 105 mg/dL (74-106); High Density Lipoprotein 53 mg/dL; Potassium 3.3 mmol/L (3.5-5.1); Sodium Level 140 mmol/L (136-145); Triglycerides 84 mg/dL; Very Low Density Lipoprotein 17 mg/dL (5-40)
== END ==
PROVIDERS: PCP Family Medicine; Referring Provider Family Medicine; Visit Provider Family Medicine
DX: I10 Essential (primary) hypertension (principal)
CPT/HCPCS: 36415; 80048; 80061

== ENCOUNTER → 2020-10-13 10:54 | Outpatient (CLI) | payer MEDICARE, OTHER, SELFPAY ==
[2020-10-13 12:44] LABS: Anion Gap 3 (5-15); BUN 17 mg/dL (7-18); BUN/Creat Ratio 17.1 RATIO (10-20); Calcium,Total 9.1 mg/dL (8.5-10.1); Chloride 104 mmol/L (98-107); Cholesterol 162 mg/dL (200); EST Glomerular Filtration Rate 78 mL/min (>60); Est Glom Filt Rate - Afr Amer 94 mL/min (>60); Glucose 107 mg/dL (74-106); High Density Lipoprotein 53 mg/dL; Potassium 3.7 mmol/L (3.5-5.1); Sodium Level 137 mmol/L (136-145); Triglycerides 122 mg/dL; Very Low Density Lipoprotein 24 mg/dL (5-40)
[2020-10-13 17:25] LABS: PSA,Total- Diagnostic 2.94 ng/mL (0.0-4.0)
== END ==
PROVIDERS: PCP Family Medicine; Visit Provider Family Medicine
DX: I10 Essential (primary) hypertension (principal); R97.20 Elevated prostate specific antigen [PSA]
CPT/HCPCS: 36415; 80048; 80061; 84153

== ENCOUNTER → 2020-11-11 09:06 | Outpatient (CLI) | payer MEDICARE, OTHER, SELFPAY ==
[2020-11-11 10:05] LABS: Hematocrit 41.6 % (40-54); Hemoglobin 13.9 g/dL (13.0-16.5); Mean Corp Hgb Conc 33.4 g/dL (32-36); Mean Corpuscular Hgb 30.1 pg (27.0-32.0); Mean Platelet Vol. 10.4 fl (6.2-12.0); Platelet Count 199 K/mm3 (150-450); RBC Distribution Width CV 12.6 % (11.6-14.6); RBC Distribution Width SD 41.3 fl (35.1-43.9); Red Blood Count 4.62 M/mm3 (4.6-6.2); White Blood Count 5.1 K/mm3 (4.4-11.0)
== END ==
PROVIDERS: PCP Family Medicine; Referring Provider Orthopaedic Surgery; Visit Provider Orthopaedic Surgery
DX: M47.26 Other spondylosis with radiculopathy, lumbar region (principal); M48.061 Spinal stenosis, lumbar region without neurogenic claudication
CPT/HCPCS: 36415; 85027

== ENCOUNTER 2021-01-28 11:00 | Outpatient (RCR) | payer MEDICARE, OTHER, SELFPAY ==
--- NOTE | 2021-02-18 11:05 | HP.PTEVAL_ITS ---
Patient's Visit Information DIANNE HERNANDEZ is a 75 year old M referred to Physical Therapy by Dr. Garry Gray MD with a diagnosis of Low back pain. Date of Evaluation: 02/18/21 Physical Therapist: Claudio Beck DPT - Visit Plan Frequency: 3x /Week Duration: 1 Week Plan: Start with neutral spine core stability exercises, progressing to HEP. - Subjective Pt. is here today for his initial evaluation with diagnosis of low back pain. Pt. has been having pain in his back for a few months now. He did have an injection which has helped. He is doing well know, but would like some exercises to increase core stability and reduce risk of his low back pain worsening. Pt. denies N/T. Pt. has some mild discomfort 2/10 pain with sleeping at times. Pt. reports no LE weakness in either LE. Pt. reports no issues sitting, slight increase in symptoms with prolonged standing, but feels like his symptoms worsen throughout the day. He is hopeful to increase his core stability in order to get back to all tennis and other recreational activities without limitations. - Pain Lumbar spine Pain Intensity (Out of 10): 2 Pain Intensity Range: 0, 2 - Objective POSTURE: Pt. has decent posture in stance. pt. has increased anterior pelvic tilt in stance. Pt. has slight increase in lumbar lordosis with pelvic positioning. No lateral shift noted. PALPATION: Stiffness with spring testing throughout lumbar spine, but no pain. Pt. has mild tenderness at lumbar erector spinae, bilaterally. NEURO: normal sensation in BLEs to light and sharp touch. Pt. has normal DTR of BLEs. Pt. is able to rise on heels and toes without issues. ROM: LUMBAR SPINE: flexion min loss NE, ext min loss NE, SB min loss bilat NE, rotation min loss bilat NE. Pt. has normal hip ROM without increase in symptoms, bilaterally. MMT: BLEs 5/5 throughout, except 4+/5 hip abd and ER bilaterally. Pt. has poor+ core strength. GAIT: Normal gait pattern. No antalgic pattern noted. - Balance/Special Test Scores Oswestry Low Back Score: 12 - Goals Goal 1:: LTG: Pt. to be I with HEP. Goal Time Frame: 2-4 Weeks Goal 2:: STG: pt. have decreased pain to 0-2/10 pain Goal 3:: LTG: Pt. to have increased core strength to fair. Goal Time Frame: 4-6 Weeks Goal 4:: LTG: Pt. to play tennis without increase in R hip or low back pain. Goal Time Frame: 4-6 Weeks - Rehabilitation Potential Physical Therapy Diagnosis: Pt. has signs and symptoms consistent with Low back pain. He would benefit from core stability in neutral spine progressing to dynamic strengthening as tolerated. Rehabilitation Potential: Excellent - Anticipated Interventions Patient/Client Instruction: Educate patient on: Condition, Plan of Care, Risk Factors, Benefits of Fitness Program For the Purpose of:: To facilitate caregiver knowledge, To improve self management, To prevent re-injury, To improve ability to perform tasks related to life management, To improve tolerance to ADL's Therapeutic Exercise to Include: Strength training, Power training, Flexibilty training, Passive ROM, Active ROM, Dynamic Lumbar Stabilization, Manoj Exercises For the Purpose of:: To decrease pain, To decrease swelling/inflammation, To increase ROM, To improve nutrient delivery to tissue, To improve muscle performance and motor function, To improve ability to perform ADL's, To increase tolerance to activity/condition/position, To improve gait and locomotor functions, To improve health of tissue, To decrease soft tissue restriction, To increase flexibility/ROM Thank you for the opportunity to evaluate your patient. For Medicare and Medicare HMO plans, please review the plan of care and approve it. It will need to be FAXED BACK to us at [phone] for Medicare purposes. For Medicare only, by signing this I certify the plan of care. Please let me know if there are questions or concerns regarding this plan of care. Physician Signature: Date:
--- NOTE | 2021-02-18 11:26 | HP.PTDCSUM ---
It has been my pleasure to treat DIANNE HERNANDEZ referred by Dr. Garry Gray MD, with the diagnosis of Low back pain for a total of 3 visit(s). Discharge Date: 01/28/21 Please see the following information for a summary of their discharge status. Subjective: No new issues noted. Pt. reports being HEP compliant. Pt. reports being 80% better with exercises, no pain. Pt. reports not trying tennis due to being with grand kids Lumbar spine Pain Intensity (Out of 10): 0 % Improvement: 80 Objective/Function: Pt. is overall doing well. He reports being comfortable completing his exercises independently at this point in time. He reports minimal pain with exercises as long as he does not over do it. Pt. has increased core stability to fair. Pt. has 5/5 BLE strength, except hip abd 4+/5 bilat. He has improved pelvic control and able to complete a better posterior pelvic tilt with all gait and with all execises. Goal 1:: LTG: Pt. to be I with HEP. Goal Progress: Goal Met Goal 2:: STG: pt. have decreased pain to 0-2/10 pain Goal Progress: Progressing Goal 3:: LTG: Pt. to have increased core strength to fair. Goal Progress: Goal Met Goal 4:: LTG: Pt. to play tennis without increase in R hip or low back pain. Goal Progress: Progressing Plan: Pt. to be DC to HEP at this point in time. Discharge Comments: Pt. was seen in PT for his low back pain and treated with core stability exercises. He did very well. Pt. is independent with his HEP for neutral spine core stability. He will be DC from PT at this point in time. If there are questions or concerns regarding this patient's physical therapy, please feel free to call me at [phone]. Thank you for the referral of this patient. Sincerely, Claudio Arevalo Sipos, DPT Balance/Gait/Functional tests - Balance/Special Test Scores Oswestry Low Back Score: 7
== END 2021-01-28 19:00 | disposition home or self-care (01) ==
LOC: PT 11:00
PROVIDERS: PCP Family Medicine; Referring Provider Anesthesiology Pain Medicine; Visit Provider Anesthesiology Pain Medicine
DX: M54.9 Dorsalgia, unspecified (principal); M79.606 Pain in leg, unspecified
CPT/HCPCS: 97110; 97161

== ENCOUNTER → 2021-02-09 16:48 | Outpatient (CLI) | payer MEDICARE, OTHER, SELFPAY ==
--- NOTE | 2021-02-09 16:52 | RAD_ITS ---
STUDY: X-RAY - LUMBAR SPINE REASON FOR EXAM: Male, 75 years old. BACK PAIN TECHNIQUE: 3 view(s) of the lumbar spine were obtained. COMPARISON: None FINDINGS: Normal lumbar lordosis. There is no substantial scoliosis. There is a normal alignment of the vertebrae. There is multilevel endplate spondylosis of the lumbar vertebrae. There is multi-level degenerative disc disease with multi-level disc space narrowing. There is no demonstrated fracture. The bones is made of a left hip prosthesis. Moderate to severe degenerative disease of the right hip. The soft tissue structures are unremarkable. RAD/Lumbar Spine 2 or 3 Views IMPRESSION: Degenerative disease with no acute fracture or spondylolisthesis. Electronically Signed: Baylee Rod MD at 3:25 EDT , Service support ,
== END ==
PROVIDERS: PCP Family Medicine; Referring Provider Anesthesiology Pain Medicine; Visit Provider Anesthesiology Pain Medicine
DX: M54.9 Dorsalgia, unspecified (principal)
CPT/HCPCS: 72100

== ENCOUNTER → 2021-03-23 11:17 | Outpatient (CLI) | payer MEDICARE, OTHER, SELFPAY ==
[2021-03-23 12:23] LABS: Absolute Lymphocyte Count 1.15 X10^3/uL (0.83-4.51); Absolute Neutrophil Count 3.9 X10^3/uL (2.0-7.7); Basophil# 0.02 X10^3/uL; Basophil% 0.3 % (0-1); Eosinophil# 0.12 X10^3/uL; Eosinophils% 2.1 % (0-5); Hemoglobin 14.9 g/dL (13.0-16.5); Lymphocyte # 1.15 X10^3/ul (0.83-4.51); Mean Corp Hgb Conc 33.9 g/dL (32-36); Mean Corpuscular Hgb 30.4 pg (27.0-32.0); Mean Corpuscular Volume 89.8 fL (80-94); Mean Platelet Vol. 10.3 fl (6.2-12.0); Monocyte# 0.52 X10^3/uL; Monocyte% 9.1 % (0-10); NRBC Flagged by Analyzer 0 % (0-5); Neutrophil # 3.92 X10^3/uL (2.7-7.7); Neutrophil % 68.3 % (47-70); Platelet Count 199 K/mm3 (150-450); RBC Distribution Width CV 12.4 % (11.6-14.6); RBC Distribution Width SD 40.7 fl (35.1-43.9); White Blood Count 5.7 K/mm3 (4.4-11.0)
[2021-03-23 13:09] LABS: Anion Gap 4 (5-15); BUN 10 mg/dL (7-18); BUN/Creat Ratio 11.2 RATIO (10-20); Calcium,Total 9.2 mg/dL (8.5-10.1); Chloride 106 mmol/L (98-107); Cholesterol 146 mg/dL (200); EST Glomerular Filtration Rate 88 mL/min (>60); Est Glom Filt Rate - Afr Amer 107 mL/min (>60); Glucose 103 mg/dL (74-106); High Density Lipoprotein 61 mg/dL; Potassium 3.4 mmol/L (3.5-5.1); Sodium Level 141 mmol/L (136-145); Triglycerides 98 mg/dL; Very Low Density Lipoprotein 20 mg/dL (5-40)
== END ==
PROVIDERS: PCP Family Medicine; Referring Provider Family Medicine; Visit Provider Family Medicine
DX: I10 Essential (primary) hypertension (principal); R55 Syncope and collapse
CPT/HCPCS: 36415; 80048; 80061; 85025

== ENCOUNTER 2021-07-27 14:25 | Outpatient (CLI) | payer MEDICARE, OTHER, SELFPAY ==
[2021-07-27 18:10] LABS: Anion Gap 7 (5-15); BUN 14 mg/dL (7-18); BUN/Creat Ratio 15.3 RATIO (10-20); Calcium,Total 8.7 mg/dL (8.5-10.1); Chloride 102 mmol/L (98-107); Creatinine, Serum 0.92 mg/dL (0.70-1.30); EST Glomerular Filtration Rate 86 mL/min (>60); Est Glom Filt Rate - Afr Amer 104 mL/min (>60); Glucose 102 mg/dL (74-106); Potassium 3.1 mmol/L (3.5-5.1); Sodium Level 140 mmol/L (136-145)
== END 2021-07-27 23:59 | disposition home or self-care (01) ==
LOC: MFPLAB 14:28
PROVIDERS: PCP Family Medicine; Referring Provider Family Medicine; Visit Provider Family Medicine
DX: I10 Essential (primary) hypertension (principal)
CPT/HCPCS: 36415; 80048

== ENCOUNTER → 2021-08-04 | Outpatient (CLI) | payer MEDICARE, OTHER, SELFPAY ==
--- NOTE | 2021-08-04 12:47 | CDU_ITS ---
Reason For Study: near syncope Rt. Velocities/BP Lt. Velocities/BP Prox CCA 85.2/13.4 cm/sec. Prox CCA 112.0/15.2 cm/sec. Mid CCA 102.1/17.3 cm/sec. Mid CCA 110.1/17.0 cm/sec. Dist CCA 77.3/13.4 cm/sec. Dist CCA 91.3/15.1 cm/sec. Prox ICA 60.4/14.7 cm/sec. Prox ICA 58.1/9.0 cm/sec. Mid ICA 66.9/18.6 cm/sec. Mid ICA 60.5/13.9 cm/sec. Dist ICA 76.0/18.6 cm/sec. Dist ICA 61.8/15.1 cm/sec. Rt. ICA/CCA = .7. Lt. ICA/CCA = .6. Prox ECA 100.8/10.8 cm/sec. Prox ECA 92.5/10.2 cm/sec. Rt. Vert. 43.4/12.1 cm/sec. Lt. Vert. 38.8/11.3 cm/sec. Right Extracranial There is intimal thickening but no significant atherosclerotic plaque noted in the right common carotid artery. There is intimal thickening but no significant atherosclerotic plaque noted in the right internal carotid artery. There is intimal thickening but no significant atherosclerotic plaque noted in the right external carotid artery. Antegrade flow is noted in the right vertebral artery. Left Extracranial There is intimal thickening but no significant atherosclerotic plaque noted in the left common carotid artery. There is intimal thickening but no significant atherosclerotic plaque noted in the left internal carotid artery. There is intimal thickening but no significant atherosclerotic plaque noted in the left external carotid artery. Antegrade flow is noted in the left vertebral artery. Procedure Carotid Duplex 81356. This is a Carotid Duplex examination using B-mode, color flow and specral Doppler. The exam was diagnostic. Exam performed in department. VL/Carotid Duplex Ultrasound Interpretation Summary No significant atherosclerotic plaque or stenosis noted in the internal carotid arteries bilaterally. Flow within the vertebral arteries is antegrade bilaterally. Ordering Physician: Virgilio Steinberg Performed By: Austin Bailey RVT
== END | disposition home or self-care (01) ==
LOC: CVS 12:46
PROVIDERS: PCP Family Medicine; Referring Provider Family Medicine; Visit Provider Family Medicine
DX: R55 Syncope and collapse (principal)
CPT/HCPCS: 93880

== ENCOUNTER → 2022-03-21 | Outpatient (CLI) | payer MEDICARE, OTHER, SELFPAY ==
--- NOTE | 2022-03-21 17:08 | MRI_ITS ---
EXAM: MR RIGHT UPPER EXTREMITY WITHOUT INTRAVENOUS CONTRAST, SHOULDER CLINICAL INDICATION: suspect rotator cuff tear TECHNIQUE: Multiplanar and multisequence MR images of the right shoulder without intravenous contrast. This report was created using [employer] report [employer] technology. COMPARISON: None. FINDINGS: TENDONS: SUPRASPINATUS: Low-grade partial-thickness tear involving the anterior fibers of supraspinatus tendon. Specifically this involves the interstitial portion of the tendon at the level of footprint. This type tear is likely to be hidden or concealed at the time of arthroscopy. Mild to moderate supraspinatus tendinosis. INFRASPINATUS: Low-grade partial-thickness tear involving the articular sided fibers of the infraspinatus tendon adjacent to the footprint of the tendon. Mild to moderate infraspinatus tendinosis. SUBSCAPULARIS: Unremarkable. Intact. TERES MINOR: Unremarkable. Intact. BICEPS BRACHII, LONG HEAD: Unremarkable. The extra-articular biceps tendon is in the bicipital groove. The intra-articular biceps tendon is normal. LIGAMENTS: GLENOHUMERAL: Unremarkable. Intact. CORACOACROMIAL: Type II acromion with curved undersurface. No coracoacromial ligament thickening. No subacromial enthesophyte. No os acromiale. MUSCLES: Mild fatty infiltration of the teres minor muscle which can be seen with chronic denervation change or may be idiopathic. No other muscle atrophy or edema. FLUID: Moderate amount of fluid in the subacromial/subdeltoid bursa is compatible bursitis. There are moderate to severe hypertrophic degenerative changes acromioclavicular joint with moderate mass effect on the underlying soft tissues. A large amount of fluid involves the acromioclavicular joint. No joint effusion. CARTILAGE: Unremarkable. Articular cartilage intact. GLENOID LABRUM: Unremarkable. Intact, limited evaluation on non-arthrographic exam. BONES/JOINTS: Rotator interval is unremarkable. OTHER SOFT TISSUES: Unremarkable. No rotator interval edema. MRI/Upper Ext Joint Only(Routine) IMPRESSION: 1. Low-grade partial-thickness tear involving the anterior fibers of supraspinatus tendon. Specifically this involves the interstitial portion of the tendon at the level of footprint. This type tear is likely to be hidden or concealed at the time of arthroscopy. 2. Low-grade partial-thickness tear involving the articular sided fibers of the infraspinatus tendon adjacent to the footprint of the tendon. 3. Subacromial/subdeltoid bursitis. 4. Moderate to severe hypertrophic degenerative changes acromioclavicular joint with moderate mass effect on the underlying soft tissues. A large amount of fluid involves the acromioclavicular joint. Electronically Signed: Mt Kemp MD at 23:30 EST ,
== END | disposition home or self-care (01) ==
PROVIDERS: PCP Family Medicine; Referring Provider Family Medicine; Visit Provider Family Medicine
DX: M75.111 Incomplete rotator cuff tear or rupture of right shoulder, not specified as traumatic (principal)
CPT/HCPCS: 73221

== ENCOUNTER 2022-05-12 09:30 | Outpatient (RCR) | payer MEDICARE, OTHER, SELFPAY ==
--- NOTE | 2022-02-13 10:24 | HP.PTEVAL_ITS ---
Patient's Visit Information DIANNE HERNANDEZ is a 76 year old M referred to Physical Therapy by Dr. Virgilio Steinberg MD with a diagnosis of R shoulder pain. Date of Evaluation: 02/13/22 Physical Therapist: Miquel Nance PT, ATC - Visit Plan Frequency: 2-3x /Week Duration: 4-6 Weeks Plan: R shoulder DTR, rotator cuff strengthening, scap stab ex's, UBE, and HEP - Subjective Pt reports he has had R shoulder pain for a long time. Pt notes the pain is located on the anterior aspect of R shoulder and along the lateral aspect of his R UE. Pt reports he did have an x-ray which he was told he doesn't have any OA or rotator cuff problems. Pt is R hand dominant. Pt denies tingling or numbness in R UE. Pt reports he has sleep difficulty secondary to pain. Pt reports overhead reaching tends to cause him the most pain. 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 1/10 pain in the R shoulder while sitting at rest, 6/10 pain at worst (when he is moving his R shoulder) - Pain R shoulder Pain Intensity (Out of 10): 1 Pain Intensity Range: 6 - Objective Neuro: B UE sensation is WNL to light touch. B bicipital reflex= 2/3. Palpation: Pt is sore along the lateral aspect of R shoulder. No obvious deformities noted this date. Pt has minor tenderness with palpation to the supraspinatus region. ROM: L shoudler flex= 150, abd= 150, ER= 50, IR= WNL; R shoulder flex= 135, fcg=065, ER= 65, IR= WNL. MMT: L shoudler flex= 19, abd= 27, ER= 20, IR= 22; R shoulder flex= 21, abd= 34, ER= 21, IR= 30. special tests: pain with HK. 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 For Medicare and Medicare HMO plans, please review the plan of care and approve it. It will need to be FAXED BACK to us at [phone] for Medicare purposes. For Medicare only, by signing this I certify the plan of care. Please let me know if there are questions or concerns regarding this plan of care. Physician Signature: Date:
--- NOTE | 2022-02-27 09:31 | HP.PTDCSUM ---
It has been my pleasure to treat DIANNE HERNANDEZ referred by Dr. Virgilio Steinberg MD, with the diagnosis of R shoulder pain for a total of 4 visit(s). Discharge Date: Please see the following information for a summary of their discharge status. Subjective: Pt reports he is worse now than last Rx. Pt reports R shoulder Pain Intensity (Out of 10): 3 Objective/Function: Pt is in more pain today than he was prior to beginning PT. Pt is not progressing at this time. Goal 1:: Decrease R shoulder pain x 50% to aid with sleep Goal Progress: Not Progressing Goal 2:: Increase R shoulder flex and abd ROM x 20 degrees to aid with IADL's Goal Progress: Not Progressing Goal 3:: I with HEP Goal Progress: Goal Met Plan: Discontinue Rx at this time secondary to lack of progress. Recommend pt to return to Dr. If there are questions or concerns regarding this patient's physical therapy, please feel free to call me at [phone]. Thank you for the referral of this patient. Sincerely, Miquel Nance, PT, ATC Balance/Gait/Functional tests - Balance/Special Test Scores Quick DASH Score: 22.7239
--- NOTE | 2022-05-12 10:06 | HP.PTDCSUM ---
It has been my pleasure to treat DIANNE HERNANDEZ referred by Dr. Virgilio Steinberg MD, with the diagnosis of R shoulder pain for a total of 14 visit(s). Discharge Date: Please see the following information for a summary of their discharge status. Subjective: Pt continues to note anterior R shoulder pain R shoulder Pain Intensity (Out of 10): 2 % Improvement: 85 Objective/Function: R shoulder pain ranges from 0-2/10. R shoulder ROM: flex= 165, abd= 175. Pt is I with HEP. Rx goals achieved Goal 1:: Decrease R shoulder pain x 50% to aid with sleep Goal Progress: Progressing Goal 2:: Increase R shoulder flex and abd ROM x 20 degrees to aid with IADL's Goal Progress: Goal Met Goal 3:: I with HEP Goal Progress: Goal Met Plan: Discharge to HEP If there are questions or concerns regarding this patient's physical therapy, please feel free to call me at [phone]. Thank you for the referral of this patient. Sincerely, Miquel Nance, PT, ATC Balance/Gait/Functional tests - Balance/Special Test Scores Quick DASH Score: 9.0900
== END 2022-05-12 19:00 | disposition home or self-care (01) ==
LOC: PT 09:30
PROVIDERS: PCP Family Medicine; Referring Provider Family Medicine; Visit Provider Family Medicine
DX: M25.511 Pain in right shoulder (principal)
CPT/HCPCS: 97035; 97110; 97161; 97164

== ENCOUNTER → 2022-07-27 | Outpatient (CLI) | payer MEDICARE, OTHER, SELFPAY ==
[2022-07-27 15:51] LABS: Anion Gap 4 (5-15); BUN 17 mg/dL (7-18); BUN/Creat Ratio 20.3 RATIO (10-20); Calcium,Total 9.2 mg/dL (8.5-10.1); Chloride 107 mmol/L (98-107); Cholesterol 120 mg/dL (200); Creatinine, Serum 0.84 mg/dL (0.70-1.30); EST Glomerular Filtration Rate 95 mL/min (>60); Est Glom Filt Rate - Afr Amer 115 mL/min (>60); Glucose 93 mg/dL (74-106); High Density Lipoprotein 59 mg/dL; Sodium Level 139 mmol/L (136-145); Triglycerides 69 mg/dL; Very Low Density Lipoprotein 14 mg/dL (5-40)
== END | disposition home or self-care (01) ==
LOC: MFPLAB 11:34
PROVIDERS: PCP Family Medicine; Visit Provider Family Medicine
DX: I10 Essential (primary) hypertension (principal)
CPT/HCPCS: 36415; 80048; 80061

== ENCOUNTER → 2023-01-26 | Outpatient (CLI) | payer MEDICARE, OTHER, SELFPAY ==
[2023-01-26 12:43] LABS: Anion Gap 7 (5-15); BUN 16 mg/dL (7-18); BUN/Creat Ratio 18.2 RATIO (10-20); Calcium,Total 8.9 mg/dL (8.5-10.1); Chloride 107 mmol/L (98-107); Cholesterol 102 mg/dL (200); Creatinine, Serum 0.88 mg/dL (0.70-1.30); EST Glomerular Filtration Rate 89 mL/min (>60); Est Glom Filt Rate - Afr Amer 108 mL/min (>60); Glucose 117 mg/dL (74-106); High Density Lipoprotein 58 mg/dL; PSA,Total - Annual Screen 2.93 ng/mL (0.00-4.00); Potassium 3.5 mmol/L (3.5-5.1); Sodium Level 142 mmol/L (136-145); Triglycerides 66 mg/dL; Very Low Density Lipoprotein 13 mg/dL (5-40)
== END | disposition home or self-care (01) ==
LOC: MFPLAB 09:56
PROVIDERS: PCP Family Medicine; Visit Provider Family Medicine
DX: I10 Essential (primary) hypertension (principal); Z12.5 Encounter for screening for malignant neoplasm of prostate
CPT/HCPCS: 36415; 80048; 80061; 84153; G0103

== ENCOUNTER → 2023-03-23 | Outpatient (CLI) | payer MEDICARE, OTHER, SELFPAY ==
[2023-03-23 15:10] LABS: Erythrocyte Sedimentation Rate 2 mm/hr (0-20)
[2023-03-23 15:32] LABS: CRP < 2.90 mg/L (0.0-3.0); Rheumatoid Factor < 10.0 IU/mL (<15)
[2023-03-26 12:08] LABS: ANTINUCLEAR ANTIBODIES DIRECT Negative (Negative)
[2023-03-30 22:07] LABS: HLA B27 Negative (.)
== END | disposition home or self-care (01) ==
LOC: MFPLAB 11:45
PROVIDERS: PCP Family Medicine; Visit Provider Family Medicine
DX: M54.9 Dorsalgia, unspecified (principal)
CPT/HCPCS: 36415; 81374; 85652; 86038; 86140; 86431

== ENCOUNTER → 2023-03-27 | Outpatient (CLI) | payer MEDICARE, OTHER, SELFPAY ==
--- NOTE | 2023-03-27 09:16 | BI_ITS ---
MAMMOGRAPHY - BILATERAL DIAGNOSTIC REASON FOR EXAM: Male, 77 years old. Left breast pain and swelling for one and half months.. PERTINENT HISTORY: Prior left excisional breast biopsy. Mother with breast cancer. TECHNIQUE: Digital bilateral breast evonne (3D mammographic acquisition) in the CC and MLO projections. 2-D mediolateral oblique (MLO) and craniocaudad (CC) views of both breasts were obtained. CAD: Full Field Digital Mammography with Computer Added Detection was performed. COMPARISON: None. Baseline examination. FINDINGS: Breast Composition: There are scattered areas of fibroglandular density. There are no dominant masses or suspicious calcifications. Increased density is seen in the left breast. No focal masses present. Correlation with ultrasound is recommended for further evaluation. No other significant abnormalities are identified. BI/DIAG MAMM W/CAD, BILAT IMPRESSION: Asymmetry of breast tissue or more breast tissue is seen in the left breast as compared to the right side. Correlation with ultrasound is recommended. ASSESSMENT CATEGORY: BIRADS Category 0: Incomplete. Need additional imaging evaluation. A letter regarding these results will be sent to the patient by the facility within 30 days. Approximately 10% of breast cancers are not detected by mammography. A normal mammogram should not delay biopsy of a clinically suspicious abnormality. Electronically Signed: Fabricio Li MD at 11:10 EST ,
--- NOTE | 2023-03-27 09:59 | US_ITS ---
STUDY: ULTRASOUND BREAST - LEFT REASON FOR EXAM: Male, 77 years old. Pain in the left breast. TECHNIQUE: Axial and longitudinal images of the LEFT breast were performed with a high resolution ultrasound transducer. # OF IMAGES: 31 COMPARISON: Comparison is made with prior mammogram done earlier in the day. FINDINGS: LEFT Breast: The retroareolar region of the left breast was examined with ultrasound. There is fibroglandular tissue. No masses seen. US/Breast Limited Unilateral IMPRESSION: Findings suggestive of gynecomastia. ASSESSMENT CATEGORY: BIRADS Category 2: Benign. A letter regarding these results will be sent to the patient by the facility within 30 days. Electronically Signed: Fabricio Li MD at 11:17 EST ,
== END | disposition home or self-care (01) ==
LOC: OPBI 09:15
PROVIDERS: PCP Family Medicine; Visit Provider Family Medicine
DX: N64.4 Mastodynia (principal); N63.0 Unspecified lump in unspecified breast
CPT/HCPCS: 76642; 77062; 77066; G0279

== ENCOUNTER → 2023-04-19 | Outpatient (CLI) | payer MEDICARE, OTHER, SELFPAY ==
--- NOTE | 2023-04-19 07:30 | BRBX_PTH ---
PATHOLOGY RESULTS PATIENT: DIANNE HERNANDEZ [facility] U#:[id number] AGE/SX: 77/M ROOM: RE04/19/[address]: Dr. Rommel Rodrigez MD : 1945 BED: DIS: 04/19/2023 SPEC #: [id number] RECD: 04/19/23 11:10 STATUS: DANE NO #: [id number] ALISA: 04/19/23 07:[address]: Rommel Rodrigez DEPT: SURGICAL PATHOLOGY RECD BY: Ashley Abel ENTERED: 04/19/23 11:43 SP TYPE: BREAST BX OTHR DR: Dr. Virgilio Steinberg MD Tissues: Left breast, NOS Left breast, NOS Procedures: Surgery Specimen Level IV HEADER OPERATION: Left breast biopsy PRE-OP DIAGNOSIS: Left breast mass TISSUE SUBMITTED: A - Left breast tissue 2 o'clock tender induration, B - Left breast retro areolar biopsy MICROSCOPIC DIAGNOSIS A. Left breast at 2 o'clock, core biopsy: Blood and mature adipose tissue. No evidence of malignancy. See comment. B. Left breast retro areolar region, biopsy: Focal collagenized stroma and blood. No evidence of malignancy. See comment. AM:mario 04/20/2023 COMMENT A & B. The lesion may represent a hematoma. Clinical correlation is suggested. MICROSCOPIC DESCRIPTION Slides are reviewed. GROSS DESCRIPTION A - Received in fixative is one container labeled with the patient's name and designated left breast tissue 2 o'clock tender induration. The specimen consists of an elongated piece of hemorrhagic soft tissue measuring 1.5 cm in length and 0.1 cm in diameter. The entire specimen is submitted in one cassette. B - Received in fixative is one container labeled with the patient's name and designated left breast retroareolar biopsy. The specimen consists of multiple elongated fragments of martinez-yellow fibroadipose tissue that in aggregate measure 1.0 x 0.5 x 0.1 cm. The entire specimen is submitted in one cassette. / SJ:mario 04/19/2023 TC:5 CPT: 85720 x2
== END | disposition home or self-care (01) ==
LOC: LABSPEC 11:32
PROVIDERS: PCP Family Medicine; Referring Provider Surgery; Visit Provider Surgery
DX: N63.20 Unspecified lump in the left breast, unspecified quadrant (principal)
CPT/HCPCS: 88305

== ENCOUNTER → 2023-09-20 | Outpatient (CLI) | payer MEDICARE, OTHER, SELFPAY ==
[2023-09-20 15:00] LABS: ALB/GLOB Ratio 1.3 RATIO (0.9-2.4); AST(SGOT) 21 U/L (15-37); Alanine Aminotransfer ALT/SGPT 30 U/L (16-61); Alkaline Phosphatase 80 U/L (45-117); Anion Gap 4 (5-15); BUN 18 mg/dL (7-18); BUN/Creat Ratio 19.8 RATIO (10-20); Calcium,Total 9.2 mg/dL (8.5-10.1); Chloride 105 mmol/L (98-107); Cholesterol 132 mg/dL (200); Creatinine, Serum 0.91 mg/dL (0.70-1.30); EST Glomerular Filtration Rate 86 mL/min (>60); Est Glom Filt Rate - Afr Amer 104 mL/min (>60); Globulin 3.1 g/dL (2.2-4.2); Glucose 103 mg/dL (74-106); High Density Lipoprotein 62 mg/dL; Potassium 3.7 mmol/L (3.5-5.1); Protein, Total 7.1 g/dL (6.4-8.2); Sodium Level 138 mmol/L (136-145); Triglycerides 71 mg/dL; Very Low Density Lipoprotein 14 mg/dL (5-40)
== END | disposition home or self-care (01) ==
LOC: MFPLAB 09:59
PROVIDERS: PCP Family Medicine; Visit Provider Family Medicine
DX: I10 Essential (primary) hypertension (principal)
CPT/HCPCS: 36415; 80053; 80061

== ENCOUNTER → 2024-03-17 | Outpatient (CLI) | payer MEDICARE, OTHER, SELFPAY ==
[2024-03-17 10:50] LABS: ALB/GLOB Ratio 1.2 RATIO (0.9-2.4); AST(SGOT) 18 U/L (15-37); Alanine Aminotransfer ALT/SGPT 26 U/L (16-61); Albumin, Serum 3.8 g/dL (3.2-5.0); Alkaline Phosphatase 79 U/L (45-117); Anion Gap 4 (5-15); BUN 19 mg/dL (7-18); BUN/Creat Ratio 18.8 RATIO (10-20); Calcium,Total 9.2 mg/dL (8.5-10.1); Chloride 108 mmol/L (98-107); Cholesterol 124 mg/dL (200); Creatinine, Serum 1.01 mg/dL (0.70-1.30); EST Glomerular Filtration Rate 76 mL/min (>60); Est Glom Filt Rate - Afr Amer 92 mL/min (>60); Globulin 3.2 g/dL (2.2-4.2); Glucose 121 mg/dL (74-106); High Density Lipoprotein 59 mg/dL; Potassium 3.2 mmol/L (3.5-5.1); Sodium Level 140 mmol/L (136-145); Triglycerides 90 mg/dL; Very Low Density Lipoprotein 18 mg/dL (5-40)
== END | disposition home or self-care (01) ==
LOC: MFPLAB 09:03
PROVIDERS: PCP Family Medicine; Referring Provider Family Medicine; Visit Provider Family Medicine
DX: I10 Essential (primary) hypertension (principal)
CPT/HCPCS: 36415; 80053; 80061

== ENCOUNTER → 2024-04-16 | Outpatient (CLI) | payer MEDICARE, OTHER, SELFPAY ==
[2024-04-16 12:55] LABS: Anion Gap 4 (5-15); BUN 22 mg/dL (7-18); Calcium,Total 9.1 mg/dL (8.5-10.1); Chloride 105 mmol/L (98-107); EST Glomerular Filtration Rate 69 mL/min (>60); Est Glom Filt Rate - Afr Amer 83 mL/min (>60); Glucose 108 mg/dL (74-106); Potassium 3.6 mmol/L (3.5-5.1); Sodium Level 138 mmol/L (136-145)
== END | disposition home or self-care (01) ==
LOC: MFPLAB 10:42
PROVIDERS: PCP Family Medicine; Referring Provider Family Medicine; Visit Provider Family Medicine
DX: I10 Essential (primary) hypertension (principal)
CPT/HCPCS: 36415; 80048

== ENCOUNTER → 2024-09-02 | Outpatient (CLI) | payer MEDICARE, OTHER, SELFPAY ==
--- NOTE | 2024-09-02 10:05 | RAD_ITS ---
PROCEDURE: LUMBAR SPINE 2 OR 3 VIEWS 09/02/2024 REASON FOR EXAM: SPONDYLOSIS WITHOUT MYELOPATHY OR RADICULOPATHY, LUMBOSACRAL ADOLFO TECHNIQUE: 3 view(s) of the lumbar spine; AP, lateral and coned-down L5-S1 view COMPARISON: None available FINDINGS: 5 [id number] lumbar vertebral body types identified. No fracture or malalignment. Partially imaged bilateral hip replacements noted. Multilevel mostly moderate disc space narrowing and degenerative endplate changes throughout the lumbar spine appears greatest at L3-4 and L4-5. Large flowing anterior osteophyte formation L1-2 and L2-3. Bilateral facet hypertrophic degenerative changes. RAD/Lumbar Spine 2 or 3 Views IMPRESSION: No fracture or malalignment. Multilevel mostly moderate disc space narrowing and degenerative endplate hubbard es throughout the lumbar spine appears greatest at L3-4 and L4-5. Reading Location: [id number]
== END | disposition home or self-care (01) ==
LOC: RAD 09:55
PROVIDERS: PCP Family Medicine; Referring Provider Anesthesiology Pain Medicine; Visit Provider Anesthesiology Pain Medicine
DX: M47.817 Spondylosis without myelopathy or radiculopathy, lumbosacral region (principal)
CPT/HCPCS: 72100

== ENCOUNTER → 2024-09-15 | Outpatient (CLI) | payer MEDICARE, OTHER, SELFPAY ==
[2024-09-15 12:43] LABS: ALB/GLOB Ratio 1.7 RATIO (0.9-2.4); AST(SGOT) 22 U/L (<=37); Alanine Aminotransfer ALT/SGPT 20 U/L (<=46); Albumin, Serum 4.3 g/dL (3.4-4.8); Alkaline Phosphatase 75 U/L (40-129); Anion Gap 11 (5-15); BUN 15 mg/dL (4-19); BUN/Creat Ratio 14.3 RATIO (10-20); Calcium,Total 9.3 mg/dL (7.6-11.0); Carbon Dioxide 26.5 mmol/L (21.0-32.0); Chloride 104 mmol/L (98-108); Creatinine, Serum 1.02 mg/dL (0.70-1.20); EST Glomerular Filtration Rate 76 (>60); Globulin 2.6 g/dL (2.2-4.2); Glucose 113 mg/dL (70-99); Potassium 3.5 mmol/L (3.3-5.1); Protein, Total 6.9 g/dL (5.9-8.4); Sodium Level 141 mmol/L (133-145)
[2024-09-15 13:02] LABS: Cholesterol 121 mg/dL (<=200); High Density Lipoprotein 53 mg/dL; Low Density Lipoprotein Calc. 50 mg/dL; Triglycerides 89 mg/dL; Very Low Density Lipoprotein 18 mg/dL (5-40); cholesterol:hdl ratio screen 2.27
== END | disposition home or self-care (01) ==
LOC: MFPLAB 08:51
PROVIDERS: PCP Family Medicine; Referring Provider Family Medicine; Visit Provider Family Medicine
DX: R61 Generalized hyperhidrosis (principal); E78.5 Hyperlipidemia, unspecified; I10 Essential (primary) hypertension
CPT/HCPCS: 36415; 80053; 80061; 84403; 84443